=== PATIENT | male | born 1970 | race Caucasian/White ===

== ENCOUNTER 2021-03-28 08:51 | Day surgery (SDC) | payer OTHER, SELFPAY ==
[2021-03-04 13:47] VITALS: BMI 37.7
--- NOTE | 2021-03-23 16:05 | EKG12_ITS ---
Test Reason : PRE-OP Blood Pressure : / mmHG Vent. Rate : 068 BPM Atrial Rate : 068 BPM P-R Int : 188 ms QRS Dur : 088 ms QT Int : 404 ms P-R-T Axes : -12 030 008 degrees QTc Int : 429 ms Normal sinus rhythm Inferior infarct , age undetermined , cannot be excluded Poor R wave progression Abnormal ECG Confirmed by GUILLERMINA TEIXEIRA, GIUSEPPE ([id number]), editor producer SUNDEEP POE ([id number]) on 03/25/2021 12:16:35 PM Referred By: Valentin García Confirmed By:GIUSEPPE SARMIENTO MD
[2021-03-23 17:15] LABS: Hematocrit 46.5 % (40-54); Hemoglobin 15.4 g/dL (13.0-16.5); Mean Corp Hgb Conc 33.1 g/dL (32-36); Mean Corpuscular Hgb 28.6 pg (27.0-32.0); Mean Corpuscular Volume 86.4 fL (80-94); Mean Platelet Vol. 10.9 fl (6.2-12.0); Platelet Count 203 K/mm3 (150-450); RBC Distribution Width CV 13.7 % (11.6-14.6); RBC Distribution Width SD 43.4 fl (35.1-43.9); Red Blood Count 5.38 M/mm3 (4.6-6.2); White Blood Count 5.6 K/mm3 (4.4-11.0)
[2021-03-28] VITALS (8 sets, daily range): BP systolic 117–159; BP diastolic 69–100; PULSE 67–94; RESP 14–16; TEMP 36–37.2; O2SAT 92–100; BMI 37.3
[2021-03-28] MEDS: Lactated Ringers 1,000 ML 100 ML IV (09:36)
--- NOTE | 2021-03-28 10:05 | PCM.HP.BLA ---
History and Physical Date of Admission: 03/28/21 Intake Vital Signs 03/04/21 13:47 Height 6 ft 1 in Weight: 286 lb BMI 37.7 BP 139/87 H Blood Pressure Location Rt brachial Position Sitting Respiration 18 Intake Visit Reasons: Hernia Chief Complaint: umbilical hernia Community Coordinator Required: No Is patient in pain?: No Allergies No Known Allergies Allergy (Verified 03/04/21 13:47) Medications fluticasone propionate 50 mcg/actuation nasal spray,suspension 1 spray INTRANASAL DAILY 03/04/21 [History Confirmed 03/04/21] ibuprofen 800 mg tablet 800 mg PO Q8H 03/04/21 [History Confirmed 03/04/21] indomethacin 50 mg capsule 50 mg PO TID 03/04/21 [History Confirmed 03/04/21] sildenafil 50 mg tablet 50 mg PO DAILY PRN 03/04/21 [History Confirmed 03/04/21] PFSH Medical History (Updated 03/04/21 @ 13:[address] Valentin García MD) Allergies Gout Surgical History (Updated 03/04/21 @ 13:46 by Eleonora Mariee) H/O abdominal surgery S/P bilateral inguinal hernia repair Status post left foot surgery Social History (Updated 03/04/21 @ 13:47 by Eleonora Mariee) Smoking Status: Former smoker alcohol intake: current alcohol intake frequency: a few times a month HPI HPI HPI: BUNNY GARCIA, is a 50 M who presents to the office today for bulging in the umbilical area. The patient reports that has been going on for about a year. The patient does not report any nausea or vomiting but it is uncomfortable especially when pushing it back in. ROS General General: No weight change, appetite, fatigue, colon cancer, breast cancer or weakness HEENT HEENT: No difficulty swallowing, eye injury, eye surgery, swollen glands or hoarseness Endo Endocrine: No thyroid disease, diabetes mellitus, thyroid cancer, Hair loss, heat intolerance or cold intolerance Skin Skin: No rash or changing moles Breast Breast: No left breast lump, right breast lump, nipple discharge, breast pain, abnormal mammogram, abnormal US or breast enlargement Musc Musculoskeletal: Yes arthritis and gout; No back problems, rheumatoid arthritis or joint pain Cardio Cardiovascular: No murmur, pacemaker, heart disease, atrial fibrillation, high blood pressure, heart attack, heart stent, palpitations, shortness of breat with exertion or chest pain Psych Psychiatric: No depression, anxiety or hearing voices Resp Respiratory: Yes shortness of breath, No sleep apnea, No cough, No COPD, No asthma, No emphysema and No wheezing Gastro Gastrointestinal: No abdominal pain, No nausea or vomiting, No diarrhea, No constipation, No blood in stool, No acid reflux, No hemorrhoids, No ulcers, No gallbladder problem and No black,tarry stools Tejinder Hematologic: No blood thinners, No blood disorders, No bleeding, No anemia and No blood clots Neuro Neurologic: No system reviewed and no additional complaints, except as documented, No as per HPI, No abnormal gait, No abnormal hearing, No abnormal movements, No abnormal speech, No behavioral changes, No burning sensations, No confusion, No convulsions, No disequilibrium, No dizziness, No localized weakness, No frequent falls, No headache(s), No lack of coordination, No loss of vision, No memory loss, No numbness, No other visual disturbances, No radicular pain, No restless legs, No sensory deficit, No syncope, No tingling, No tremor(s), No weakness and No other Exam Const General: cooperative Orientation: alert and oriented x3 HENMT Head: normal to inspection Neck Neck: normal visual inspection and full ROM Chest Chest palpation & inspection: normal inspection of the chest Resp Effort & Inspection: normal respiratory effort Auscultation: clear to auscultation bilaterally Cardio Rate: regular rate Rhythm: regular rhythm GI Inspection: non-distended Palpation: soft, hernia umbilical and nontender Skin General: no rashes or lesions noted Neuro General: patient alert and patient oriented x3 Extrem General: full ROM Psych Appearance: grossly normal Mental Status: mental status grossly normal Assessment and Plan Assessment and Plan (1) Umbilical hernia: Status: Acute Qualifiers: Obstruction and gangrene presence: without obstruction or gangrene Qualified Code(s): K42.9 - Umbilical hernia without obstruction or gangrene Plan - Dr. Valentin García MD: The patient has a small reducible umbilical hernia. He would like this repaired. I discussed umbilical hernia repair with mesh. I discussed the risks of the procedure including but not red to bleeding, infection, injury to underlying organs. I discussed mesh placement with the patient. I discussed the risks of mesh placement as well as the risk of recurrence without mesh. The patient understands all of these things and would like to schedule umbilical hernia repair with mesh. Valentin García MD Pager: [facility] [address] [place] [address] [address] [place] [address] Office:
--- NOTE | 2021-03-28 11:14 | EX.PCM.DISCH ---
Discharge Instructions Procedure Hernia Diet Discharge Diet: Light diet - advance as tolerated Activity Discharge Activity: May Not Drive (for 2-3 days or while taking narcotic pain meds.) and May Shower (with the bandage in place 1-2 days after surgery.) May shower in (days): 1 Lifting Restrictions: 20 pounds for 6 weeks. Additional Activity Instructions:: Climbing stairs is fine, walking is encouraged. Sitting in bed may be uncomfortable. Sitting up using your lateral muscles (sitting up sideways) is usually more comfortable. Do not drive, work heavy equipment of sign legal documents for 24 hours. If your hernia repair was an ingunial repair, you may have scrotal swelling, an ice pack and/or athletic support can provide more comfort. Pain medications may cause nausea, you should typically eat light foods as you take your pain medications. Pain medications may also cause constipation. If you have difficulty with this, discuss with your doctor. Dressing / Incision Call your doctor if your incision/area has: Continuous Slow Oozing, Sudden Increased Bleeding, Increased Pain/ Swelling, Increased Redness, Foul Smelling Discharge and Swelling at the incision site Call your doctor if you observe: Fever of 101 or Higher Suture Line Care: Avoid Pulling/Pushing and Avoid Pinching/Bending Remove Dressing in: 4 days Cleanse incision/area with: Soap & Water Additional Dressing/Incision Instructions:: Remove steri strips in 7-10 days Follow Up Care Please Follow Up With: Valentin García MD When: Please call to schedule 2 week follow up appointment. [phone] Test Results: Test results from this visit will be discussed in further detail at your follow-up appointment, if applicable. Discharge Plan Admission Attending Provider: Valentin García Primary Care Provider: Adilson Izquierdo Discharge Orders/Prescriptions Prescriptions: New oxycodone-acetaminophen [Percocet] 5-325 mg tablet 1 tab PO Q6H PRN (Reason: pain) 5 Days Qty: 20 RF: 0 No Action indomethacin 50 mg capsule 50 mg PO TID PRN (Reason: gout) RF: 0 fluticasone propionate [Flonase Allergy Relief] 50 mcg/actuation spray,suspension 1 spray intranasal DAILY RF: 0 sildenafil [Viagra] 50 mg tablet 50 mg PO DAILY PRN (Reason: Erectile Dysfunction) RF: 0 ibuprofen 800 mg tablet 800 mg PO Q8H PRN (Reason: Pain) RF: 0 multivitamin [Multi-Day] Tablet 1 tab PO DAILY RF: 0 cranberry 400 mg Capsule 400 mg PO DAILY RF: 0 shark cartilage 500 mg Capsule 500 mg PO DAILY RF: 0 Referrals / Follow Up: Adilson Izquierdo MD [Primary Care Provider] - Disposition Disposition (needs filled in before D/C Order can be placed): Home, self care
[2021-03-28] MEDS: Cefazolin 2 GM in 0.9% Normal Saline 100 ML IV (11:23)
[2021-03-28] MEDS: Bupiv/Epi 0.25% 30 ML Vial (11:48)
--- NOTE | 2021-03-28 12:15 | PCM.OPRPT ---
Problems Associated Problem List Diagnoses (1) Umbilical hernia: Report of Operation Date of Procedure: 03/28/21 Pre-Operative Diagnosis: Umbilical hernia Post-Operative Diagnosis: Same Surgery/Procedure Performed:: Umbilical hernia repair with mesh Description of Procedure: Patient was brought back to the operating room and general anesthesia was induced. The abdomen was prepped and draped in usual sterile fashion. An incision was marked and injected with local anesthetic. Then a curvilinear incision was made using a scalpel and deepened to the hernia sac. The hernia sac was reduced and the fascia was elevated. The preperitoneal plane was dissected free circumferentially. A small Ventralex ST mesh was placed in the preperitoneal space and sutured to the anterior fascia using 0 PDS sutures. The area was irrigated and suctioned dry. The fascia was reapproximated using interrupted 0 PDS sutures. The subcutaneous tissue was irrigated and the incision was closed with interrupted 3-0 Vicryl sutures as well as a running 4-0 Monocryl suture. Steri-Strips and bandage were applied. Patient tolerated the procedure well was brought to PACU in stable condition. Grafts/Implants Used: Small Ventralex ST mesh Admit VTE Documentation VTE Mechan Device Prophylaxis: SCD's
== END 2021-03-28 14:04 | disposition home or self-care (01) ==
LOC: SDC 08:53 → AC 09:29
PROVIDERS: Anesthesiology; PCP Family Medicine; Referring Provider Surgery; Visit Provider Surgery
PROC: (CPT 49585; principal; 2021-03-28 10:45)
DX: K42.9 Umbilical hernia without obstruction or gangrene (principal); M19.90 Unspecified osteoarthritis, unspecified site; J45.909 Unspecified asthma, uncomplicated; Z86.718 Personal history of other venous thrombosis and embolism; Z87.891 Personal history of nicotine dependence; R94.31 Abnormal electrocardiogram [ECG] [EKG]; M10.9 Gout, unspecified; Z79.51 Long term (current) use of inhaled steroids; Z79.1 Long term (current) use of non-steroidal anti-inflammatories (NSAID)
CPT/HCPCS: 00830; 49585; 36415; 85027; 93005; J7120; C1781

== ENCOUNTER → 2022-08-24 | Outpatient (CLI) | payer OTHER, SELFPAY ==
--- NOTE | 2022-08-24 14:52 | CT_ITS ---
STUDY: CT MAXILLOFACIAL SINUSES REASON FOR EXAM: Male, 52 years old. CHRONIC SINUSITIS RADIATION DOSAGE (If Supplied By Facility): CTDIvol = ( 28.14 ) mGy, DLP = ( 760.26 ) mGycm TECHNIQUE: The patient was scanned in a multi detector CT scanner. High resolution axial imaging was performed without the administration of intravenous contrast material. Sagittal and coronal images were reconstructed. Individualized dose optimization techniques were used for this CT. COMPARISON: None. FINDINGS: FRONTAL SINUSES: Normal aeration, without mucosal inflammatory disease. ETHMOIDAL SINUSES: Normal aeration, without mucosal inflammatory disease. MAXILLARY SINUSES: Normal aeration, without mucosal inflammatory disease. SPHENOIDAL SINUSES: Normal aeration, without mucosal inflammatory disease. There is patency of the bilateral maxillary infundibuli with normal uncinate processes, ethmoid bullae, and hiatus semilunaris. Normal bilateral middle turbinates. There is hypertrophy of the left inferior nasal turbinate. There is a right sided nasal septal deviation with a right sided nasal septal spur. There is patency of the bilateral nasal airways. The visualized osseous structures are normal. The visualized bilateral orbital contents are normal. CT/Sinus/Facial Bone IMPRESSION: Nasal septal deviation towards the right side of midline. Hypertrophy of the left inferior turbinate. Electronically Signed: Marvin Ward MD at 15:32 EST ,
== END | disposition home or self-care (01) ==
PROVIDERS: PCP Family Medicine; Referring Provider Otolaryngology; Visit Provider Otolaryngology
DX: J32.8 Other chronic sinusitis (principal)
CPT/HCPCS: 70486